=== PATIENT | male | born 1975 | race Caucasian/White ===

== ENCOUNTER 2021-11-09 09:28 | Day surgery (SDC) | payer OTHER ==
[2021-11-08 08:58] VITALS: BMI 32.1
[~2021-11-09 09:28] MED LIST: LACTATED RINGERS 1,000 ML IV SCH
[2021-11-09 10:00] VITALS: TEMP 97.9
[2021-11-09] MEDS ORDERED: PROPOFOL 10 MG/ML 20 ML VIAL IV ONE (10:33)
--- NOTE | 2021-11-09 10:38 | P.GSHP ---
History of Present Illness H&P Date: 11/09/21 Chief Complaint: History of colon polyps This a 38-year-old male with history of colon polyps. Patient presents today for colonoscopy. Past Medical History Past Medical History: Sleep Apnea/CPAP/BIPAP Additional Past Medical History / Comment(s): HEART MURMUR History of Any Multi-Drug Resistant Organisms: None Reported Past Surgical History: No Surgical Hx Reported Past Anesthesia/Blood Transfusion Reactions: No Reported Reaction Past Psychological History: No Psychological Hx Reported Smoking Status: Current every day smoker Past Alcohol Use History: None Reported Past Drug Use History: None Reported Medications and Allergies Home Medications Medication Instructions Recorded Confirmed Type No Known Home Medications 11/08/21 11/09/21 History Allergies Allergy/AdvReac Type Severity Reaction Status Date / Time No Known Allergies Allergy Verified 11/09/21 10:06 Surgical - Exam Vital Signs Temp Pulse Resp BP Pulse Ox 97.9 F 83 16 143/90 96 11/09/21 09:59 11/09/21 09:59 11/09/21 09:59 11/09/21 09:59 11/09/21 09:59 - General well developed, well nourished, no distress - Eyes PERRL - ENT normal pinna - Neck no masses - Respiratory normal expansion - Cardiovascular Rhythm: regular - Abdomen Abdomen: soft, non tender Assessment and Plan Assessment: History of colon polyps. We'll perform colonoscopy.
--- NOTE | 2021-11-09 10:53 | P.OP ---
Date of Procedure: 11/09/21 Preoperative Diagnosis: History of colon polyps Postoperative Diagnosis: Normal colonoscopy Procedure(s) Performed: Colonoscopy Anesthesia: MAC Surgeon: Oliverio Jackson Pathology: none sent Condition: stable Disposition: PACU Description of Procedure: The patient's placed on the endoscopy table lateral position. He received IV sedation. Digital rectal exam was performed which revealed no ebonized. The flexible colonoscope was then placed patient anus and passed throughout the entire colon. The ileocecal valve was visualized. The cecum, ascending and transverse colon appeared normal. In the descending and sigmoid colon there is mild diverticular changes. The scope was brought back back the rectum this appeared normal. Scope was withdrawn for patient.
[2021-11-09 11:11] VITALS: RESP 18
[2021-11-09 11:33] VITALS: BP 148/90; PULSE 80
== END 2021-11-09 11:54 | disposition home or self-care (01) ==
LOC: ORWHC2ENDO 09:28
PROVIDERS: ATTEND Surgery
DX: Z86.010 Personal history of colon polyps (principal); G47.30 Sleep apnea, unspecified; R01.1 Cardiac murmur, unspecified; Z99.89 Dependence on other enabling machines and devices; F17.200 Nicotine dependence, unspecified, uncomplicated
CPT/HCPCS: 45378; J2704